=== PATIENT | male | born 1995 | race African-American/Black ===

== ENCOUNTER 2018-10-17 16:03 | Emergency (ER) | payer OTHER ==
[~2018-10-17] VITALS: Ht 185.4 cm; Wt 145.1 kg
[2018-10-17 16:13] VITALS: BP 126/95; Ht 185.4 cm; Wt 145.1 kg
== END 2018-10-17 17:28 | disposition home or self-care (01) ==
LOC: ED 16:03
DX: S89.92XA Unspecified injury of left lower leg, initial encounter (principal); J45.909 Unspecified asthma, uncomplicated; Z88.1 Allergy status to other antibiotic agents; W11.XXXA Fall on and from ladder, initial encounter; Y93.89 Activity, other specified; Y92.89 Other specified places as the place of occurrence of the external cause; Y99.8 Other external cause status